=== PATIENT | female | born 1985 | race Hispanic/Latino ===

== ENCOUNTER 2020-05-16 08:09 | Day surgery (SDC) | payer MEDICAID ==
[~2020-05-16 08:09] MED LIST: WATER FOR IRRIG STERILE 1,500 ML BOTTLE IR ONE; WATER FOR IRRIG STERILE 2000 ML IR ONE; ceFAZolin/Water 2 GM/20 ML 2 GM/20 ML SYRINGE IV NR
[2020-05-16] MEDS ORDERED: MIDAZOLAM 2 MG/2 ML INJ IV SCH (08:52)
[2020-05-16] MEDS ORDERED: LACTATED RINGERS 1,000 ML IV SCH (08:52)
[2020-05-16] MEDS ORDERED: fentaNYL 100 MCG/2 ML INJ ONE (09:00)
[2020-05-16] MEDS ORDERED: LIDOCAINE MPF (2%) 20 MG/1 ML VIAL 5 ML ONE (09:00)
[2020-05-16] MEDS ORDERED: ONDANSETRON 4 MG/2 ML INJ ONE (09:00)
[2020-05-16] MEDS ORDERED: propofoL 200 MG/20 ML VIAL IV ONE (09:00)
[2020-05-16] MEDS ORDERED: HYDROmorphone 1 MG/1 ML INJ IV PRN ×2 (09:04)
[2020-05-16] MEDS ORDERED: ONDANSETRON 4 MG/2 ML INJ IV PRN (09:04)
--- NOTE | 2020-05-16 09:05 | Anesthesia Day of Surgery ---
Anesthesia Day of Surgery - Day of Surgery Patient Examined: Yes Patient H&P Reviewed: Yes Patient is NPO: Yes
--- NOTE | 2020-05-16 09:06 | Anesthesia Consultation ---
Anesthesia Consult and Med Hx Date of service: 05/16/20 - Airway Anesthetic Teeth Evaluation: Chipped, Edentulous (Upper) ROM Head & Neck: Adequate Mental/Hyoid Distance: Adequate Mallampati Class: Class II Intubation Access Assessment: Good - Pre-Operative Health Status ASA Pre-Surgery Classification: ASA2 Proposed Anesthetic Plan: General - Pulmonary Hx Smoking: Yes (1/2 PPD X 20 YRS) Hx Asthma: No (+2FS) Hx Sleep Apnea: No (POOJA PRE SCREEN NEGATIVE) - Cardiovascular System Hx Hypertension: No (LOW BP) - Central Nervous System Hx Back Pain: Yes (FROM STONE) Hx Psychiatric Problems: Yes (Anxiety/Depression) - Endocrine Hx Renal Disease: Yes (Stone) - Hematic Hx Anemia: Yes (ONLY WITH PREG) - Other Systems Hx Substance Use: Yes (MARIJUANA 2-3X PER DAY) Hx Cancer: No
[2020-05-16] MEDS ORDERED: MORPHINE 2 MG/1 ML INJ IV SCH (09:09)
[2020-05-16] MEDS ORDERED: dexAMETHasone 20 MG/5 ML VIAL ONE (09:53)
[2020-05-16] MEDS ORDERED: WATER FOR IRRIG STERILE 1,500 ML BOTTLE IR ONE (10:46)
[2020-05-16] MEDS ORDERED: WATER FOR IRRIG STERILE 2000 ML IR ONE (10:46)
--- NOTE | 2020-05-16 10:52 | Short Stay Summary ---
Short Stay Documentation Date of service: 05/16/20 - History H&P: obtained from office - Allergies and Medications Current Medications: Allergies No Known Allergies Allergy (Verified 05/13/20 10:37) Home Medications Medication Instructions Recorded Confirmed Last Taken Type HYDROcodone/APAP 5-325 [[place] 1 each PO Q4HR PRN 05/13/20 05/13/20 05/15/20 History 5/325] Ibuprofen [Motrin] 800 mg PO Q8HR PRN 05/13/20 05/16/20 2 Weeks Ago History ~05/02/20 Ondansetron HCl [Zofran] 4 mg PO PRN PRN 05/13/20 05/13/20 05/16/20 04:00 History Tamsulosin [Flomax] 0.4 mg PO QDAY 05/13/20 05/13/20 05/15/20 History traMADoL [Ultram] 50 mg PO Q6HR PRN 05/13/20 05/13/20 05/16/20 04:00 History Active Medications Hydromorphone HCl (Dilaudid) 0.25 mg IV Q10MIN PRN PRN Reason: Pain, Moderate (4-6) Stop: 05/16/20 23:00 Hydromorphone HCl (Dilaudid) 0.5 mg IV Q10MIN PRN PRN Reason: Pain , Severe (7-10) Stop: 05/16/20 23:00 Cefazolin Sodium (Ancef/Sterile Water 2 Gm/20 Ml) 2 gm in 20 mls @ 80 mls/hr IV PREOP NR; Protocol Stop: 05/16/20 23:00 Lactated Ringer's (Lactated Ringers) 1,000 mls @ 75 mls/hr IV DIRECT KALINA Last Admin: 05/16/20 09:20 Dose: 75 mls/hr Documented by: Midazolam HCl (Versed) 2 mg IV ONCE KALINA Stop: 05/16/20 11:00 Last Admin: 05/16/20 09:21 Dose: 2 mg Documented by: Morphine Sulfate (Morphine) 2 mg IV ONCE KALINA Stop: 05/16/20 11:00 Last Admin: 05/16/20 09:23 Dose: 2 mg Documented by: Ondansetron HCl (Zofran) 4 mg IV ONCE PRN PRN Reason: Nausea And Vomiting Stop: 05/16/20 11:00 - Brief post op/procedure progress note Date of procedure: 05/16/20 Pre-op diagnosis: rt proximal ureteral stone Post-op diagnosis: other (pyonephrosis) Procedure: cysto, rpg, stent with internal short string, urine c&s Estimated blood loss: none Pathology: none Condition: stable - [facility] [place], post op info on chart - Disposition Condition at discharge: Stable Disposition: DC-01 TO HOME OR SELFCARE Short Stay Discharge Plan Follow up with: PRIMARY CARE, [Primary Care Provider] - 7 Days
[2020-05-16 12:19] VITALS: BP 114/77
--- NOTE | 2020-05-16 12:52 | Operative Report ---
PREOPERATIVE DIAGNOSIS: Right 7 mm proximal ureteral stone. POSTOPERATIVE DIAGNOSES: Right 7 mm proximal ureteral stone, pyonephrosis. PROCEDURES: Cystoscopy, bilateral retrograde pyelograms, right double-J stent (6-Emirati 24 cm with a short internal string), staged procedure. SURGEON: Jordan Smith MD ANESTHESIA: General. ESTIMATED BLOOD LOSS: Minimal. FLUIDS: Crystalloid. COMPLICATIONS: No complications. INDICATIONS: This is a 34-year-old female seen in the office for right flank pain. CT of abdomen and pelvis at [place] revealed a 7 mm proximal stone. We discussed options. The patient agreed to proceed with surgical intervention. DESCRIPTION OF PROCEDURE: The patient was taken to the operative suite, placed in a supine position. After adequate general anesthesia, placed in a dorsal lithotomy position, prepped and draped in a sterile fashion. Pancystourethroscopy was performed with a 22-Emirati Storz cystoscope. No bladder pathology. On restaurant attendant film, obvious proximal 7 mm right stone. Bilateral retrograde pyelograms were obtained with an 8-Emirati Ben catheter and 8 mL of contrast. No filling defects on the left. Right side, obvious hydronephrosis proximal to the stone. Two 0.035 Glidewire were placed. Mo pus could be appreciated in the right collecting system. Urine culture was obtained. At that point, I elected to place a 6-Emirati 24 cm stent with an internal string drain her bladder. We will come back at a later date for lithotripsy. She will go home on Cipro, Ultram and [place]. JOB# [id number] [facility]
--- NOTE | 2020-05-16 13:55 | Post Anesthesia Evaluation ---
- Post Anesthesia Evaluation Patient Participated: Yes Airway Patent: Yes Stable Respiratory Function: Yes Nausea/Vomiting: No Temp > 96.8F: Yes Pain Manageable: Yes Adequeate Hydration: Yes Anesthesia Complications: No Block Receding Appropriately: Not Applicable Patient on Ventilator: No
--- NOTE | 2020-05-16 14:23 | Fluoroscopy Report ---
INTRAOPERATIVE FLUOROSCOPY INDICATION / CLINICAL INFORMATION: RT URETERAL STONE. TECHNIQUE: Intraoperative spot images were obtained during the procedure. FINDINGS: Intraoperative fluoroscopy images for retrograde urography. See operative/procedure note by performing physician for full details. Fluoroscopy Time: 17 seconds. Fluoroscopy Images: 8. Signer Name: Aniceto Lozano MD Signed: 05/16/2020 2:18 PM Workstation Name: [id number]
== END 2020-05-16 08:10 | disposition home or self-care (01) ==
LOC: OR 08:09
PROVIDERS: ATTEND Urology
DX: N13.2 Hydronephrosis with renal and ureteral calculous obstruction (principal); I10 Essential (primary) hypertension; F17.210 Nicotine dependence, cigarettes, uncomplicated; G43.909 Migraine, unspecified, not intractable, without status migrainosus; F32.9 Major depressive disorder, single episode, unspecified; F41.9 Anxiety disorder, unspecified; Z79.899 Other long term (current) drug therapy; Z98.51 Tubal ligation status; Z98.890 Other specified postprocedural states; Z86.2 Personal history of diseases of the blood and blood-forming organs and certain disorders involving the immune mechanism
CPT/HCPCS: 52332; 74420; 81025; 87086; A4217; C1758; C1769; C2617; J0690; J1100; J1170; J2250; J2270; J2405; J2704; J3010; J7120; Q9967

== ENCOUNTER 2020-05-26 13:44 | Day surgery (SDC) | payer MEDICAID ==
[~2020-05-26 13:44] MED LIST changes: -WATER FOR IRRIG STERILE 1,500 ML BOTTLE IR ONE; -WATER FOR IRRIG STERILE 2000 ML IR ONE
[2020-05-26] MEDS ORDERED: LACTATED RINGERS 1,000 ML IV SCH (14:00)
--- NOTE | 2020-05-26 14:02 | Anesthesia Day of Surgery ---
Anesthesia Day of Surgery - Day of Surgery Patient Examined: Yes Patient H&P Reviewed: Yes Patient is NPO: Yes
--- NOTE | 2020-05-26 14:02 | Anesthesia Consultation ---
Anesthesia Consult and Med Hx Date of service: 05/26/20 - Airway Anesthetic Teeth Evaluation: Chipped, Edentulous (Upper) ROM Head & Neck: Adequate Mental/Hyoid Distance: Adequate Mallampati Class: Class II Intubation Access Assessment: Good - Pre-Operative Health Status ASA Pre-Surgery Classification: ASA2 Proposed Anesthetic Plan: General - Pulmonary Hx Smoking: Yes (1/2 PPD X 20 YRS + MARIJUANA DAILY) Hx Asthma: No (+2FS) Hx Sleep Apnea: No (POOJA PRE SCREEN NEGATIVE) - Cardiovascular System Hx Hypertension: No (LOW BP) - Central Nervous System Hx Back Pain: Yes (FROM STONE) Hx Psychiatric Problems: Yes (Anxiety/Depression) - Endocrine Hx Renal Disease: Yes (Stone) - Hematic Hx Anemia: Yes (ONLY WITH PREG) - Other Systems Hx Substance Use: Yes (MARIJUANA 2-3X PER DAY) Hx Cancer: No - Additional Comments Anesthesia Medical History Comments: Was here [id number]
[2020-05-26] MEDS ORDERED: ONDANSETRON 4 MG/2 ML INJ IV PRN (14:04)
[2020-05-26] MEDS ORDERED: HYDROmorphone 1 MG/1 ML INJ IV PRN ×2 (14:04)
[2020-05-26] MEDS ORDERED: LIDOCAINE MPF (2%) 20 MG/1 ML VIAL 5 ML ONE (14:19)
[2020-05-26] MEDS ORDERED: HYDROmorphone 1 MG/1 ML INJ ONE (14:19)
[2020-05-26] MEDS ORDERED: propofoL 200 MG/20 ML VIAL IV ONE (14:19)
[2020-05-26] MEDS ORDERED: MIDAZOLAM 2 MG/2 ML INJ IV NR (15:00)
--- NOTE | 2020-05-26 15:01 | Post Operative Note ---
Date of procedure: 05/26/20 Pre-op diagnosis: r renal stone Post-op diagnosis: same Findings: as above Procedure: r eswl Anesthesia: GETA Estimated blood loss: none Pathology: none Condition: stable Disposition: PACU
--- NOTE | 2020-05-26 15:03 | Discharge Summary ---
Short Stay Discharge Plan Activity: other (no straining ) Weight Bearing Status: Full Weight Bearing Diet: low fat Special Instructions: other (inc fluids ) Durable Medical Equipment Needed Upon Discharge: other (j stent ) Follow up with: PRIMARY CAREMD [Primary Care Provider] - 7 Days ARIE MAGALLON MD [Staff Physician] - 7 Days
[2020-05-26] MEDS ORDERED: ONDANSETRON 4 MG/2 ML INJ ONE (15:20)
[2020-05-26 16:04] VITALS: BP 105/71
--- NOTE | 2020-05-26 20:47 | Operative Report ---
PREOPERATIVE DIAGNOSIS: Previous ureteral stone, now right renal stone. POSTOPERATIVE DIAGNOSIS: Previous ureteral stone, now right renal stone. PROCEDURE: Right ESWL. SURGEON: Everardo Goldsmith M.D. ANESTHESIA: General. FINDINGS: This is a woman with ureteral stone transposed into the kidney. She now presents for treatment. All risks and implications discussed. DESCRIPTION OF PROCEDURE: The patient was brought to the operating room and placed on the operating room table. Following induction of anesthesia, placed over the focal point in both images and lithotripsy was begun after the timeout. Shocks were begun at 1 kV, increased to 2 kV, a renal timeout was carried out and shocks maximum kV was 8. Total 2500 shocks were given. The patient tolerated the procedure well and was brought to recovery room. We left the stent because there are still significant pieces in there, looked like the density changed significantly, brought to recovery room in stable condition. JOB# [id number] [facility]SE
== END 2020-05-26 16:30 | disposition home or self-care (01) ==
LOC: OR 13:44
PROVIDERS: ATTEND Urology
DX: N20.2 Calculus of kidney with calculus of ureter (principal); F17.210 Nicotine dependence, cigarettes, uncomplicated; G43.909 Migraine, unspecified, not intractable, without status migrainosus; F31.9 Bipolar disorder, unspecified; F41.9 Anxiety disorder, unspecified; Z98.51 Tubal ligation status; Z79.899 Other long term (current) drug therapy; Z98.890 Other specified postprocedural states; Z86.2 Personal history of diseases of the blood and blood-forming organs and certain disorders involving the immune mechanism; I10 Essential (primary) hypertension
CPT/HCPCS: 50590; 81025; J0690; J1170; J2250; J2405; J2704; J7120